=== PATIENT | female | born 1970 ===

== ENCOUNTER 2017-12-30 12:46 | Inpatient (IN) | payer OTHER ==
[2017-12-30] MEDS ORDERED: Sodium Chloride 0.9% 1,000 ML IV ONE (13:21)
[2017-12-30] MEDS ORDERED: Sodium Chloride 0.9% 1,000 ML ONE ×2 (13:27→16:41)
[2017-12-30 13:41] LABS: BASO % 0.1 % (0.0-2.0); LYMPH # 0.7 K/uL (1.0-4.3); LYMPH % 7.6 % (20.0-40.0); MEAN CORPUSCULAR HEMOGLOBIN 15.3 pg (27.0-31.0); MEAN CORPUSCULAR HGB CONC 28.9 g/dL (33.0-37.0); MEAN PLATELET VOLUME 8.5 fL (7.2-11.7); MONO # 0.8 K/uL (0.0-0.8); NEUT # 8.1 K/uL (1.8-7.0); NEUT % 84.3 % (50.0-75.0); NRBC % 0.1 % (0.0-2.0); PLATELET COUNT 245 K/uL (130-400); RBC 4.22 Mil/uL (3.80-5.20); WHITE BLOOD COUNT 9.6 K/uL (4.8-10.8)
[2017-12-30 13:46] LABS: HEMOGLOBIN 6.5 g/dL (11.0-16.0)
[2017-12-30 13:47] LABS: ALB/GLOB RATIO 1.4 (1.0-2.1); ALBUMIN 4.3 g/dL (3.5-5.0); ALT/SGPT 30 U/L (9-52); AST/SGOT 22 U/L (14-36); BLOOD UREA NITROGEN 14 mg/dL (7-17); CALCIUM 9.3 mg/dl (8.6-10.4); GFR AFRICAN-AMERICAN > 60; GFR NON-AFRICAN AMERICAN > 60; LIPASE 43 U/L (23-300)
[2017-12-30 14:18] LABS: ANISOCYTOSIS MODERATE; LYMPHOCYTE 4 % (20-40); MONOCYTE 6 % (0-10); NEUTROPHIL 90 % (50-75); PLATELET ESTIMATE NORMAL (NORMAL); TOTAL CELLS COUNTED 100
[2017-12-30 14:19] LABS: HYPOCHROMIC MARKED; MICROCYTOSIS MARKED; OVALOCYTES SLIGHT; POLYCHROMIC SLIGHT
[2017-12-30 14:33] LABS: INR 1.3; PROTHROMBIN TIME 14.7 SECONDS (9.7-12.2)
--- NOTE | 2017-12-30 14:44 | C.PDOC ---
History Of Present Illness 47 y/o female who presents to the ED with complaints of nausea, vomiting, diarrhea, fever, chills since Saturday12/27/2018. Patient reports she just returned from [place] yesterday, admits she drank water there by mistake. Patient also reports family members had similar symptoms. Patient denies chest pain, shortness of breath, dysuria, bloody diarrhea. No other physical complaints at this time. Time Seen by Provider: 12/30/17 13:10 Chief Complaint (Nursing): GI Problem History Per: Patient History/Exam Limitations: no limitations Onset/Duration Of Symptoms: Days (Saturday12/27/2017) Current Symptoms Are (Timing): Still Present Context: Other (drank water in [place]) Severity: Moderate Location Of Pain/Discomfort: Diffuse Associated Symptoms: Fever, Chills, Nausea, Vomiting, Diarrhea. denies: Chest Pain, Urinary Symptoms Recent travel outside of the [place]: No Past Medical History Reviewed: Historical Data, Nursing Documentation, Vital Signs Vital Signs: Last Vital Signs Temp 98.4 F 01/01/18 08:15 Pulse 77 01/01/18 08:15 Resp 20 01/01/18 08:15 BP 152/83 H 01/01/18 08:15 Pulse Ox 97 01/01/18 08:15 - Medical History PMH: No Chronic Diseases Surgical History: No Surg Hx Family History: States: No Known Family Hx - Social History Hx Tobacco Use: No Hx Alcohol Use: Yes Hx Substance Use: No Review Of Systems Constitutional: Positive for: Fever, Chills Cardiovascular: Negative for: Chest Pain, Palpitations Respiratory: Negative for: Cough, Shortness of Breath Gastrointestinal: Positive for: Nausea, Vomiting, Abdominal Pain, Diarrhea. Negative for: Melena, Hematochezia Genitourinary: Negative for: Dysuria, Hematuria Skin: Negative for: Rash Physical Exam - Physical Exam Appears: Non-toxic, Other (mildly uncomfortable) Skin: Normal Color, Warm, Dry, No Rash Head: Normacephalic Oral Mucosa: Moist Cardiovascular: Rhythm Regular Respiratory: Normal Breath Sounds, No Rales, No Rhonchi, No Wheezing Gastrointestinal/Abdominal: Bowel Sounds, Soft, Tenderness (mild diffuse tenderness to palpation ), No Guarding, No Rebound, Other ((-) McBurney's, (-) Davila's) Rectal: Normal Exam, Rectal Tone (normal), No Heme Positive, Heme Negative, No Maroon Stool, No Melena, No Blood Streaked Stool, No Hemorrhoids, No Mass, No Tenderness Back: No CVA Tenderness Neurological/Psych: Oriented x3 Gait: Steady ED Course And Treatment - Laboratory Results Result Diagrams: 01/01/18 06:09 01/01/18 06:09 ECG: Interpreted By Me, Viewed By Me (NSR 89 bpm, normal axis, QTc 498ms, no acute ST changes) ECG Interpretation: Abnormal O2 Sat by Pulse Oximetry: 99 (RA) Pulse Ox Interpretation: Normal Progress Note: Blood work, UA, Upreg ordered and reviewed. Patient given IV NS bolus, IV Zofran, PO Bentyl. Hgb is 6.5. Patient questioned further, admits to heavy menses that last 7 days typically, and admits she was feeling generalized weakness and lightheaded prior to her [place] trip. 2 years ago was told she was anemic and started on PO Iron, but did not take any more after supply finished. IV PRBC transfusion ordered x 2 units. - Physician Consult Information Physician Contacted: Greg Latham Outcome Of Conversation: Discussed patient with hospitalist, agrees with admission for severe anemia needing blood transfusion, travelers diarrhea. Disposition - Disposition Disposition: HOSPITALIZED Disposition Time: 15:01 Condition: STABLE - Clinical Impression Clinical Impression: Severe anemia, Travelers' diarrhea, Fever - Scribe Statement The provider has reviewed the documentation as recorded by the Scribe Sindhu Elam All medical record entries made by the Scribe were at my direction and personally dictated by me. I have reviewed the chart and agree that the record accurately reflects my personal performance of the history, physical exam, medical decision making, and the department course for this patient. I have also personally directed, reviewed, and agree with the discharge instructions and disposition. Decision To Admit - Pt Status Changed To: Hospital Disposition Of: Observation - . Bed Request Type: Regular Admitting Physician: Greg Latham Patient Diagnosis: Severe anemia, Travelers' diarrhea, Fever
[2017-12-30 14:45] LABS: HCG,QUALITATIVE URINE NEGATIVE (NEGATIVE)
[2017-12-30 14:49] LABS: SQUAMOUS EPITHIAL 26 /hpf (0-5); URINE BACTERIA OCC (<OCC); URINE BILIRUBIN NEGATIVE (NEGATIVE); URINE BLOOD NEGATIVE (NEGATIVE); URINE CLARITY Hazy (Clear); URINE COLOR Amber (YELLOW); URINE GLUCOSE (UA) NORMAL (Normal); URINE LEUKOCYTE ESTERASE 2+ Leu/uL (Negative); URINE PROTEIN 2+ mg/dL (NEGATIVE)
[2017-12-30] MEDS ORDERED: Ciprofloxacin 400mg/200ml D5W 0 MG/0 ML BAG IVPB ONE (15:42)
--- NOTE | 2017-12-30 16:07 | CP.PCM.HP ---
History of Present Illness - History of Present Illness History of Present Illness: Patient is a 47 year old female with PMHx iron-deficiency anemia and menorrhagia who presents to the ER with complaint of nausea, vomiting, diarrhea fever, and chills since 12/27/17. Patient states she was in [place] from 12/24/17 to 12/29/17 with her friends. She states on 12/27/17, she and her friends went out to a restaurant where they shared a pasta dish with clams, mussels, and shrimp. She states they asked for bottled water but were given a pitcher instead. She states she and her friends had symptoms start Saturday evening following this shared meal. Patient reports her friends are all currently hospitalized in other hospitals in the area with the same complaints. Patient denies blood in vomit or diarrhea. She reports decreased PO intake, only crackers, bread, minimal water. She reports Tmax 103 this morning at 4AM, at which time she took ibuprofen, with no relief of rigors. She reports light- headed feeling that is chronic, but worsened recently. She reports heavy menses with clots and was on oral iron supplementation in the past, but has not taken iron in a few years. PMD: Dg Mueller Allergies: none PMHx: anemia (likely iron-deficiency- on iron in past- denies sickle cell or thalassemia), uterine fibroids LMP: 12/15-12/20 requiring pad change every hour, + clots PSHx: uterine fibroid removal in [address] 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 absent: Chest Pain, Dyspnea, Leg Edema, Leg Ulcers - Respiratory Respiratory: absent: Cough, Dyspnea - Gastrointestinal Gastrointestinal: Diarrhea, Loose Stools, Nausea, Vomiting. absent: Coffee Ground Emesis, Hematemesis, Hematochezia - Genitourinary Genitourinary: absent: Dysuria - Musculoskeletal Musculoskeletal: absent: Back Pain - Integumentary Integumentary: absent: Rash, Sores, Unusual Bruising - Neurological Neurological: absent: Confusion, Focal Weakness, Vertigo, Weakness - Endocrine Endocrine: absent: Palpitations Past Patient History - Past Social History Smoking Status: Never Smoked - PSYCHIATRIC Hx Substance Use: No - SURGICAL HISTORY Hx Surgeries: No Meds Allergies/Adverse Reactions: Allergies Allergy/AdvReac Type Severity Reaction Status Date / Time No Known Allergies Allergy Verified 12/30/17 12:52 Physical Exam - Constitutional Appears: No Acute Distress - Head Exam Head Exam: ATRAUMATIC, NORMOCEPHALIC - Eye Exam Eye Exam: EOMI, PERRL. absent: Scleral icterus Additional comments: conjunctival pallor patient wearing colored contact lenses - ENT Exam ENT Exam: Mucous Membranes Dry - Neck Exam Neck exam: Negative for: Lymphadenopathy - Respiratory Exam Respiratory Exam: Clear to Auscultation Bilateral, NORMAL BREATHING PATTERN. absent: Rales, Rhonchi, Wheezes - Cardiovascular Exam Cardiovascular Exam: Tachycardia, +S1, +S2, Systolic Murmur - GI/Abdominal Exam GI & Abdominal Exam: Normal Bowel Sounds, Soft, Tenderness (diffuse). absent: Distended, Firm, Guarding - Extremities Exam Extremities exam: Positive for: normal inspection. Negative for: calf tenderness, pedal edema - Neurological Exam Neurological exam: Alert, Oriented x3 - Psychiatric Exam Psychiatric exam: Normal Affect - Skin Skin Exam: Pallor, Warm Additional comments: no petechiae Results - Vital Signs Recent Vital Signs: Last Vital Signs Temp 102.2 F H 12/30/17 15:46 Pulse 94 H 12/30/17 15:46 Resp 18 12/30/17 15:46 BP 144/51 L 12/30/17 15:46 Pulse Ox 96 12/30/17 15:46 - Labs Result Diagrams: 12/30/17 13:29 12/30/17 13:29 Labs: Laboratory Results - last 24 hr 12/30/17 12/30/17 12/30/17 13:29 13:29 14:09 WBC 9.6 RBC 4.22 Hgb 6.5 L* Hct 22.3 L MCV 53.0 L MCH 15.3 L MCHC 28.9 L RDW 22.0 H Plt Count 245 MPV 8.5 Neut % (Auto) 84.3 H Lymph % (Auto) 7.6 L Maury % (Auto) 8.0 Eos % (Auto) 0.0 Baso % (Auto) 0.1 Neut # (Auto) 8.1 H Lymph # (Auto) 0.7 L Maury # (Auto) 0.8 Eos # (Auto) 0.0 Baso # (Auto) 0.0 Neutrophils % (Manual) 90 H Lymphocytes % (Manual) 4 L Monocytes % (Manual) 6 Platelet Estimate Normal Polychromasia Slight Hypochromasia (manual) Marked Anisocytosis (manual) Moderate Microcytosis (manual) Marked Ovalocytes Slight PT INR APTT Sodium 137 Potassium 3.5 L Chloride 100 Carbon Dioxide 23 Anion Gap 17 BUN 14 Creatinine 0.7 Est GFR ( Amer) > 60 Est GFR (Non-Af Amer) > 60 Random Glucose 104 Calcium 9.3 Total Bilirubin 1.1 AST 22 ALT 30 Alkaline Phosphatase 67 Total Protein 7.4 Albumin 4.3 Globulin 3.1 Albumin/Globulin Ratio 1.4 Lipase 43 Urine Color Urine Clarity Urine pH Ur Specific Gregory Urine Protein Urine Glucose (UA) Urine Ketones Urine Blood Urine Nitrate Urine Bilirubin Urine Urobilinogen Ur Leukocyte Esterase Urine WBC (Auto) Urine RBC (Auto) Ur Squamous Epith Cells Urine Bacteria Urine HCG, Qual Stool Occult Blood Blood Type O POSITIVE Antibody Screen Negative 12/30/17 12/30/17 12/30/17 14:09 14:37 14:37 WBC RBC Hgb Hct MCV MCH MCHC RDW Plt Count MPV Neut % (Auto) Lymph % (Auto) Maury % (Auto) Eos % (Auto) Baso % (Auto) Neut # (Auto) Lymph # (Auto) Maury # (Auto) Eos # (Auto) Baso # (Auto) Neutrophils % (Manual) Lymphocytes % (Manual) Monocytes % (Manual) Platelet Estimate Polychromasia Hypochromasia (manual) Anisocytosis (manual) Microcytosis (manual) Ovalocytes PT 14.7 H INR 1.3 APTT 28 Sodium Potassium Chloride Carbon Dioxide Anion Gap BUN Creatinine Est GFR ( Amer) Est GFR (Non-Af Amer) Random Glucose Calcium Total Bilirubin AST ALT Alkaline Phosphatase Total Protein Albumin Globulin Albumin/Globulin Ratio Lipase Urine Color Bozena Urine Clarity Hazy Urine pH 5.0 Ur Specific Gregory 1.018 Urine Protein 2+ H Urine Glucose (UA) Normal Urine Ketones Negative Urine Blood Negative Urine Nitrate Positive H Urine Bilirubin Negative Urine Urobilinogen 2.0 H Ur Leukocyte Esterase 2+ H Urine WBC (Auto) 42 H Urine RBC (Auto) 3 Ur Squamous Epith Cells 26 H Urine Bacteria Occ H Urine HCG, Qual Negative Stool Occult Blood Negative Blood Type Antibody Screen Assessment & Plan - Assessment and Plan (Free Text) Assessment: Symptomatic Anemia hemoglobin 6.5, no prior studies for comparison patient reports taking iron supplements in past, denies recent follow up will check iron studies: ferritin, TIBC, transferrin check B12, folate, retic count consider hemoglobin electrophoresis pending results iron studies stool occult blood negative likely due to menorrhagia/uterine fibroids as patient has prior surgical removal of fibroids patient to be transfused 2 units PRBC will check EKG Diarrheal Illness likely food-borne due to patient's history of symptoms starting after consuming shellfish and water in [place] will check stool culture, ova & parasite, giardia, fecal leukocytes check blood and urine culture as well- UA contaminated with 26 squamous epithelial cells, 42 WBC starting cipro 400mg IV q12h, flagyl 500mg q8h to cover for possibly ameba infection from contaminated water NS @ 150cc/h bland diet Fever likely due to diarrheal illness will check blood culture, stool culture as outlined above check urine culture tylenol 650mg PO prn fever Prophylactic measure SCDs Plan of care discussed with attending physician
[2017-12-30] MEDS ORDERED: Potassium Chloride 20 mEq ER Tab PO ONE ×2 (16:30→16:42)
[2017-12-30] MEDS: Sodium Chloride 0.9% 1,000 ML IV SCH ×2 (16:43→23:26)
[2017-12-30 16:49] LABS: IRON < 10 ug/dL (37-170); TOTAL IRON BINDING CAPACITY 408 ug/dL (250-450)
[2017-12-30 16:53] LABS: FERRITIN 20.4 ng/mL
[2017-12-30 17:24] LABS: FOLATE > 20.0 ng/mL
[2017-12-30] MEDS: metroNIDAZOLE IV 500 mg/100 ml 500 MG/100 ML BAG IVPB SCH (18:11)
[2017-12-31] MEDS: metroNIDAZOLE IV 500 mg/100 ml 500 MG/100 ML BAG IVPB SCH ×3 (00:11→17:18)
[2017-12-31 01:35] VITALS: RESP 20
[2017-12-31] MEDS: Ciprofloxacin 400mg/200ml D5W 400 MG/200 ML BAG IVPB SCH ×2 (03:04→14:34)
[2017-12-31 06:52] LABS: BASO % 0.2 % (0.0-2.0); LYMPH % 13.6 % (20.0-40.0); MEAN CELL VOLUME 52.9 fL (81.0-99.0); MEAN CORPUSCULAR HGB CONC 28.3 g/dL (33.0-37.0); MONO # 0.6 K/uL (0.0-0.8); MONO % 8.7 % (0.0-10.0); NEUT # 5.6 K/uL (1.8-7.0); NEUT % 77.5 % (50.0-75.0); RBC 3.71 Mil/uL (3.80-5.20); WHITE BLOOD COUNT 7.2 K/uL (4.8-10.8)
[2017-12-31 07:16] LABS: HEMOGLOBIN 5.6 g/dL (11.0-16.0)
[2017-12-31 07:49] LABS: ALB/GLOB RATIO 1.1 (1.0-2.1); ALBUMIN 3.3 g/dL (3.5-5.0); ALT/SGPT 27 U/L (9-52); AST/SGOT 21 U/L (14-36); BLOOD UREA NITROGEN 8 mg/dL (7-17); CALCIUM 8.5 mg/dl (8.6-10.4); GFR AFRICAN-AMERICAN > 60; GFR NON-AFRICAN AMERICAN > 60
[2017-12-31] MEDS ORDERED: Potassium Chloride 20 mEq ER Tab PO ONE (09:48)
[2017-12-31] MEDS: Sodium Chloride 0.9% 1,000 ML IV SCH ×2 (12:52→19:24)
--- NOTE | 2017-12-31 17:12 | CP.PCM.PN ---
<Ashwin Jung - Last Filed: 12/31/17 17:09> Subjective - Date & Time of Evaluation Date of Evaluation: 12/31/17 Time of Evaluation: 07:25 - Subjective Subjective: Medicine progress note ( Dr. Marquez's service) Patient was seen and examined at bedside, while receiving her first unit of PRBC. Patient reports that her symptoms have improved but still admits to fatigue. Patient denies fever, chills, abdominal pain, diarrhea, nausea and vomiting. Objective - Vital Signs/Intake and Output Vital Signs (last 24 hours): Temp Pulse Resp BP Pulse Ox 102.6 F H 93 H 20 168/76 H 96 12/31/17 16:54 12/31/17 16:54 12/31/17 16:54 12/31/17 16:54 12/31/17 16:54 Intake and Output: 12/31/17 12/31/17 06:59 18:59 Intake Total 1500 2350 Output Total 200 Balance 1300 2350 - Medications Medications: Current Medications Acetaminophen (Tylenol 325mg Tab) 650 mg PO Q6 PRN PRN Reason: Fever >100.4 F Last Admin: 12/31/17 16:20 Dose: 650 mg Sodium Chloride (Sodium Chloride 0.9%) 1,000 mls @ 150 mls/hr IV .Q6H40M ZACHERY Last Admin: 12/31/17 12:52 Dose: Not Given Ciprofloxacin (Cipro 400mg/200ml Dsw) 400 mg in 200 mls @ 133 mls/hr IVPB Q12H ZACHERY PRN Reason: Protocol Last Admin: 12/31/17 14:34 Dose: 133 mls/hr Metronidazole (Flagyl) 500 mg in 100 mls @ 100 mls/hr IVPB Q8H ZACHERY PRN Reason: Protocol Last Admin: 12/31/17 08:51 Dose: Not Given Ondansetron HCl (Zofran Inj) 4 mg IVP Q6 PRN PRN Reason: Nausea/Vomiting - Labs Labs: 12/31/17 06:22 12/31/17 06:22 PT 14.7 SECONDS (9.7-12.2) H 12/30/17 14:09 INR 1.3 12/30/17 14:09 APTT 28 SECONDS (21-34) 12/30/17 14:09 - Constitutional Appears: No Acute Distress - Head Exam Head Exam: ATRAUMATIC - Eye Exam Eye Exam: EOMI - ENT Exam ENT Exam: Mucous Membranes Moist - Respiratory Exam Respiratory Exam: Clear to Ausculation Bilateral, NORMAL BREATHING PATTERN. absent: Prolonged Expiratory Phase, Rales, Rhonchi, Wheezes, Respiratory Distress - Cardiovascular Exam Cardiovascular Exam: Tachycardia, REGULAR RHYTHM, +S1, +S2 - GI/Abdominal Exam GI & Abdominal Exam: Soft, Normal Bowel Sounds. absent: Bruit, Distended, Firm , Guarding, Rigid, Tenderness - Extremities Exam Extremities Exam: Normal Inspection. absent: Calf Tenderness, Full ROM, Joint Swelling, Pedal Edema, Tenderness - Neurological Exam Neurological Exam: Alert, Awake, Oriented x3 - Psychiatric Exam Psychiatric exam: Normal Affect - Skin Skin Exam: Pallor Assessment and Plan (1) Symptomatic anemia Assessment & Plan: 2/2 menorrhagia On admission: * H/H: 6.5/22.3---> 5.6/19.6 Iron: <10 Ferritin: 20.4 B12/; 362 Folate: >20.0 TIBC: 408 Transferrin: 274.68 Recticulocyte: 2.3 Stool Occult: Negative Management: * Transfuse 2 units PRBC * F/u repeat CBC post transfusion * Plans for iron supplement upon discharge Status: Acute (2) Fever Assessment & Plan: Tmax: 103 Blood Culture: Negative x24 hours, f/u repeat BC UA: Positive nitrate, 2+ LE, F/u urine culture F/u procalcitonin Cipro 400mg IV Q12H Flagyl 500mg IV Q8H Tylenol 650mg PO Q6H PRN for fever> 100.4 NS @ 100mls/hr Status: Acute (3) History of menorrhagia Assessment & Plan: As per patient, has had Myomyectomy 2x Patient refuses inpatient transvaginal US and wants to do outpatient work-up Status: Acute (4) Travelers' diarrhea Assessment & Plan: likely food-borne due to patient's history of symptoms starting after consuming shellfish and water in [place] F/u stool culture, ova & parasite, giardia, fecal leukocytes Management: * NS @ 150cc/h * [place] diet Status: Acute (5) Prophylactic measure Assessment & Plan: DVT: SCDs GI: Not indicated Zofran 4mg IV Q6h PRN All plans and management discussed with Dr. Marquez Status: Acute <JimmyLyn V - Last Filed: 12/31/17 17:41> Objective - Vital Signs/Intake and Output Vital Signs (last 24 hours): Temp Pulse Resp BP Pulse Ox 102.6 F H 93 H 20 168/76 H 96 12/31/17 16:54 12/31/17 16:54 12/31/17 16:54 12/31/17 16:54 12/31/17 16:54 Intake and Output: 12/31/17 12/31/17 06:59 18:59 Intake Total 1500 2350 Output Total 200 Balance 1300 2350 - Medications Medications: Current Medications Acetaminophen (Tylenol 325mg Tab) 650 mg PO Q6 PRN PRN Reason: Fever >100.4 F Last Admin: 12/31/17 16:20 Dose: 650 mg Sodium Chloride (Sodium Chloride 0.9%) 1,000 mls @ 150 mls/hr IV .Q6H40M ZACHERY Last Admin: 12/31/17 12:52 Dose: Not Given Ciprofloxacin (Cipro 400mg/200ml Dsw) 400 mg in 200 mls @ 133 mls/hr IVPB Q12H ZACHERY PRN Reason: Protocol Last Admin: 12/31/17 14:34 Dose: 133 mls/hr Metronidazole (Flagyl) 500 mg in 100 mls @ 100 mls/hr IVPB Q8H ZACHERY PRN Reason: Protocol Last Admin: 12/31/17 17:18 Dose: 100 mls/hr Ondansetron HCl (Zofran Inj) 4 mg IVP Q6 PRN PRN Reason: Nausea/Vomiting - Labs Labs: 12/31/17 06:22 12/31/17 06:22 PT 14.7 SECONDS (9.7-12.2) H 12/30/17 14:09 INR 1.3 12/30/17 14:09 APTT 28 SECONDS (21-34) 12/30/17 14:09 Attending/Attestation - Attestation I have personally seen and examined this patient.: Yes I have fully participated in the care of the patient.: Yes I have reviewed all pertinent clinical information, including history, physical exam and plan: Yes Notes (Text): Patient seen, examined, case discussed with er medical technician. Patient blood transfusion was held overnight given fever. Patient's mornings is without fever even drop of hemoglobin from 6.5-5.6. Patient reported when she was in [place] with her friends she did drink the water, ice and eat food from [place]. She does report all her friends from her trip are in hospitals respectively similar complaints but diarrhea. We will transfuse 2 units today given the drop in hemoglobin. It is suspected that anemia is due to known history of fibroids. We did order for a pelvic and transvaginal ultrasound however patient chooses not to do it and would like to do it as an outpatient. We are awaiting culture workup. Patient has not had a bowel movement since yesterday. We will see if patient is having appropriate bowel movements or not. Patient this afternoon started spiking fevers 102.6F. we will get stat dose of feet of Tylenol and Benadryl. Blood cultures are negative 2. We will also order CT chest abdomen and pelvis without contrast to rule out any other etiology relation to the fever in light of diarrhea. Assessment and Plan (1) Symptomatic anemia Assessment & Plan: * 2/2 menorrhagia On admission: * H/H: 6.5/22.3---> 5.6/19.6 Iron: <10 Ferritin: 20.4 B12/; 362 Folate: >20.0 TIBC: 408 Transferrin: 274.68 Recticulocyte: 2.3 Stool Occult: Negative Management: * Transfuse 2 units PRBC * F/u repeat CBC post transfusion * Plans for iron supplement upon discharge Status: Acute (2) Fever Assessment & Plan: Tmax: 103 Tmax: 102.6F * Blood Culture: Negative x24 hours, f/u repeat BC * UA: Positive nitrate, 2+ LE, F/u urine culture * F/u procalcitonin Cipro 400mg IV Q12H Flagyl 500mg IV Q8H Tylenol 650mg PO Q6H PRN for fever> 100.4 NS @ 100mls/hr Status: Acute (3) History of menorrhagia Assessment & Plan: As per patient, has had Myomyectomy 2x Patient refuses inpatient transvaginal US and wants to do outpatient work-up Status: Acute (4) Travelers' diarrhea Assessment & Plan: * likely food-borne due to patient's history of symptoms starting after consuming shellfish and water in [place] * F/u stool culture, ova & parasite, giardia, fecal leukocytes Management: * NS @ 150cc/h * [place] diet Status: Acute (5) Prophylactic measure Assessment & Plan: * DVT: SCDs * GI: Not indicated * Zofran 4mg IV Q6h PRN
[2017-12-31 17:26] LABS: BASO % 0.1 % (0.0-2.0); LYMPH # 0.7 K/uL (1.0-4.3); LYMPH % 7.4 % (20.0-40.0); MEAN CORPUSCULAR HEMOGLOBIN 18.2 pg (27.0-31.0); MEAN CORPUSCULAR HGB CONC 30.4 g/dL (33.0-37.0); MEAN PLATELET VOLUME 8.7 fL (7.2-11.7); MONO # 0.6 K/uL (0.0-0.8); NEUT # 8.5 K/uL (1.8-7.0); NEUT % 86.5 % (50.0-75.0); PLATELET COUNT 192 K/uL (130-400); RBC 4.48 Mil/uL (3.80-5.20); RED CELL DISTRIBUTION WIDTH 31.8 % (11.5-14.5); WHITE BLOOD COUNT 9.9 K/uL (4.8-10.8)
[2017-12-31 17:38] LABS: HEMOGLOBIN 8.2 g/dL (11.0-16.0); MEAN CELL VOLUME 59.8 fL (81.0-99.0)
[2017-12-31] MEDS ORDERED: DiphenhydrAMINE 50 mg/ml Inj IVP ONE (17:45)
[2017-12-31 18:12] LABS: LYMPHOCYTE 3 % (20-40); MONOCYTE 1 % (0-10); NEUTROPHIL 96 % (50-75); TOTAL CELLS COUNTED 100
[2017-12-31 18:13] LABS: PLATELET ESTIMATE NORMAL (NORMAL)
[2017-12-31 18:14] LABS: ANISOCYTOSIS MODERATE
[2017-12-31 18:15] LABS: HYPOCHROMIC MODERATE; MICROCYTOSIS MODERATE; POLYCHROMIC SLIGHT
[2017-12-31 18:16] LABS: OVALOCYTES SLIGHT
--- NOTE | 2017-12-31 19:35 | CARD ---
APPROVED REPORT EKG Measurement Heart [id number] <Conclusion> Normal sinus rhythm Prolonged QT Abnormal ECG
[2018-01-01] MEDS: metroNIDAZOLE IV 500 mg/100 ml 500 MG/100 ML BAG IVPB SCH ×3 (00:14→18:54)
[2018-01-01] MEDS: Sodium Chloride 0.9% 1,000 ML IV SCH ×3 (01:37→08:28)
[2018-01-01] MEDS: Ciprofloxacin 400mg/200ml D5W 400 MG/200 ML BAG IVPB SCH ×2 (02:42→16:35)
[2018-01-01 06:19] LABS: BASO % 0.3 % (0.0-2.0); EOS % 0.1 % (0.0-4.0); LYMPH # 1.3 K/uL (1.0-4.3); LYMPH % 14.1 % (20.0-40.0); MEAN CELL VOLUME 59.3 fL (81.0-99.0); MEAN CORPUSCULAR HEMOGLOBIN 18.1 pg (27.0-31.0); MEAN CORPUSCULAR HGB CONC 30.6 g/dL (33.0-37.0); MEAN PLATELET VOLUME 8.6 fL (7.2-11.7); MONO # 0.7 K/uL (0.0-0.8); MONO % 8.2 % (0.0-10.0); NEUT # 7.1 K/uL (1.8-7.0); NEUT % 77.3 % (50.0-75.0); RBC 4.4 Mil/uL (3.80-5.20); RED CELL DISTRIBUTION WIDTH 30.9 % (11.5-14.5); WHITE BLOOD COUNT 9.1 K/uL (4.8-10.8)
[2018-01-01 06:34] LABS: ALB/GLOB RATIO 1.2 (1.0-2.1); ALBUMIN 3.6 g/dL (3.5-5.0); ALT/SGPT 29 U/L (9-52); AST/SGOT 44 U/L (14-36); BLOOD UREA NITROGEN 9 mg/dL (7-17); CALCIUM 8.8 mg/dl (8.6-10.4); GFR AFRICAN-AMERICAN > 60; GFR NON-AFRICAN AMERICAN > 60
[2018-01-01] MEDS ORDERED: Potassium Chloride 20 mEq ER Tab PO ONE (09:52)
[2018-01-01] MEDS: Saccharomyces Boulardi 250 mg Cap PO SCH ×2 (10:15→18:54)
[2018-01-01] MEDS: Sodium Chloride 0.45% 1,000 ML IV SCH ×2 (10:16→19:31)
[2018-01-01 11:20] LABS: SQUAMOUS EPITHIAL 3 /hpf (0-5); URINE BILIRUBIN NEGATIVE (NEGATIVE); URINE BLOOD NEGATIVE (NEGATIVE); URINE CLARITY Hazy (Clear); URINE COLOR Yellow (YELLOW); URINE GLUCOSE (UA) NORMAL (Normal); URINE LEUKOCYTE ESTERASE TRACE Leu/uL (Negative); URINE PROTEIN NEGATIVE (NEGATIVE); URINE UROBILINOGEN NORMAL mg/dL (0.2-1.0)
--- NOTE | 2018-01-01 12:01 | CT ---
PROCEDURE: CT Chest, Abdomen and Pelvis without intravenous contrast HISTORY: Fever COMPARISON: None. TECHNIQUE: CT scan of the chest, abdomen and pelvis was performed without administration of intravenous contrast. Oral contrast was not administered. Coronal and sagittal reformatted images were obtained. Radiation dose: Total exam DLP = 1279.35 mGy-cm. This CT exam was performed using one or more of the following dose reduction techniques: Automated exposure control, adjustment of the mA and/or kV according to patient size, and/or use of iterative reconstruction technique. FINDINGS: CT CHEST WITHOUT CONTRAST: LUNGS: The lungs are well inflated. There is subsegmental level in the left lower lobe no pulmonary nodule, mass or consolidation. MEDIASTINUM: Normal caliber aorta and pulmonary arterial trunk. Heart is normal in size. No pericardial effusion pain LYMPH NODES: No pathologic mediastinal adenopathy. PLEURA: No pneumothorax. No pleural effusion. BONES: Unremarkable. OTHER FINDINGS: None. CT ABDOMEN AND PELVIS: LIVER: Normal in size. No gross lesion or ductal dilatation. GALLBLADDER AND BILE DUCTS: No calcified gallstones. PANCREAS: Normal in size. No gross lesion or ductal dilatation. SPLEEN: There is mild splenomegaly. ADRENALS: No discrete nodule. KIDNEYS AND URETERS: Normal in size. No there is mild fullness in the right renal collecting system and mild diffuse dilatation of the right ureteral with a 5 mm stone at the right UV junction. VASCULATURE: No aortic aneurysm. BOWEL: The small bowel loops are normal in caliber. The colon is unremarkable. No bowel dilatation or obstruction. APPENDIX: Normal appendix. PERITONEUM: No free fluid. No free air. LYMPH NODES: No enlarged lymph nodes. BLADDER: Partially decompressed. REPRODUCTIVE: There is an enlarged lobular fibroid uterus. BONES: No acute fracture. Within normal limits for the patient's age. OTHER FINDINGS: There is a small sliding hiatal hernia. IMPRESSION: 1. 5 mm stone at the right UV in junction, mild fullness in the right renal collecting system and mild dilatation of the right ureter. 2. Mild splenomegaly. 3. Enlarged lobular fibroid uterus. Please correlate with pelvic ultrasound examination. A preliminary report was provided by [employer].
--- NOTE | 2018-01-01 13:16 | CP.PCM.PN ---
<ErichTiffjesse E - Last Filed: 01/01/18 13:36> Subjective - Date & Time of Evaluation Date of Evaluation: 01/01/18 Time of Evaluation: 07:40 - Subjective Subjective: Medicine progress note ( Dr. Marquez's service) Patient was seen and examined at bedside, Patient reports that her symptoms have improved but still admits to fatigue. Patient denies fever, chills, abdominal pain, diarrhea, nausea, vomiting, dysuria or any acute issues. Objective - Vital Signs/Intake and Output Vital Signs (last 24 hours): Temp Pulse Resp BP Pulse Ox 98.4 F 77 20 152/83 H 99 01/01/18 08:15 01/01/18 08:15 01/01/18 08:15 01/01/18 08:15 01/01/18 09:34 Intake and Output: 01/01/18 01/01/18 06:59 18:59 Intake Total 1500 1365 Balance 1500 1365 - Medications Medications: Current Medications Acetaminophen (Tylenol 325mg Tab) 650 mg PO Q6 PRN PRN Reason: Fever >100.4 F Last Admin: 01/01/18 05:44 Dose: 650 mg Ciprofloxacin (Cipro 400mg/200ml Dsw) 400 mg in 200 mls @ 133 mls/hr IVPB Q12H [facility] PRN Reason: Protocol Last Admin: 01/01/18 02:42 Dose: 133 mls/hr Metronidazole (Flagyl) 500 mg in 100 mls @ 100 mls/hr IVPB Q8H [facility] PRN Reason: Protocol Last Admin: 01/01/18 09:34 Dose: 100 mls/hr Sodium Chloride (Sodium Chloride 0.45%) 1,000 mls @ 100 mls/hr IV .Q10H [facility] Last Admin: 01/01/18 10:16 Dose: 100 mls/hr Ondansetron HCl (Zofran Inj) 4 mg IVP Q6 PRN PRN Reason: Nausea/Vomiting Saccharomyces Boulardii (Florastor) 250 mg PO BID [facility] Last Admin: 01/01/18 10:15 Dose: 250 mg - Labs Labs: 01/01/18 06:09 01/01/18 06:09 PT 14.7 SECONDS (9.7-12.2) H 12/30/17 14:09 INR 1.3 12/30/17 14:09 APTT 28 SECONDS (21-34) 12/30/17 14:09 - Constitutional Appears: Well, No Acute Distress - Head Exam Head Exam: ATRAUMATIC, NORMAL INSPECTION - Eye Exam Eye Exam: EOMI, Normal appearance - ENT Exam ENT Exam: Mucous Membranes Moist - Respiratory Exam Respiratory Exam: Clear to Ausculation Bilateral, NORMAL BREATHING PATTERN. absent: Accessory Muscle Use, Chest Wall Tenderness, Decreased Breath Sounds, Wheezes - Cardiovascular Exam Cardiovascular Exam: REGULAR RHYTHM, +S1, +S2. absent: Murmur - GI/Abdominal Exam GI & Abdominal Exam: Soft, Normal Bowel Sounds. absent: Distended, Firm, Guarding, Rigid, Tenderness - Extremities Exam Extremities Exam: Normal Inspection. absent: Calf Tenderness, Pedal Edema - Back Exam Back Exam: NORMAL INSPECTION. absent: CVA tenderness (L), CVA tenderness (R) - Neurological Exam Neurological Exam: Alert, Awake, Oriented x3 - Psychiatric Exam Psychiatric exam: Normal Affect, Normal Mood - Skin Skin Exam: Normal Color Assessment and Plan (1) Symptomatic anemia Assessment & Plan: Possibly 2/2 menorrhagia On admission: * H/H: 6.5/22.3---> 5.6/19.6 Iron: <10 Ferritin: 20.4 B12/; 362 Folate: >20.0 TIBC: 408 Transferrin: 274.68 Recticulocyte: 2.3 Stool Occult: Negative Management: * Transfuse 2 units PRBC * H/H post-transfusion of 2 units of PRBC: 8.2/26.8 * Plans for iron supplement upon discharge Status: Acute (2) Fever Assessment & Plan: Tmax: 103 Blood Culture: Negative x24 hours, f/u repeat BC UA: Positive nitrate, 2+ LE, Urine culture: E.Coli, sensitive to Cipro; LIANET: 0.25 F/u repeat UA and UC Procalcitonin: 0.13 Cipro 400mg IV Q12H (Started 12/31/17) Flagyl 500mg IV Q8H (Started 12/31/17) Tylenol 650mg PO Q6H PRN for fever> 100.4 1/2 NS @ 100mls/hr Imaging: CT Chest, Abdomen and Pelvis without intravenous contrast (01/01/18): 5 mm stone at the right UV in junction, mild fullness in the right renal collecting system and mild dilatation of the right ureter. Mild splenomegaly. Enlarged lobular fibroid uterus. Please correlate with pelvic ultrasound examination. Small sliding hiatal hernia. Status: Acute (3) UTI (urinary tract infection) Assessment & Plan: UA: Positive nitrate, 2+ LE, Urine culture: E.Coli, sensitive to Cipro; LIANET: 0.25 F/u repeat UA and UC Medications: * Cipro 400mg IV Q12H ( Started 12/31/17) * Tylenol 650mg PO Q6H PRN for fever> 100.4 * 1/2 NS @ 100mls/hr Status: Acute (4) Travelers' diarrhea Assessment & Plan: Likely food-borne due to patient's history of symptoms starting after consuming shellfish and water in [place] F/u stool culture, ova & parasite, giardia, fecal leukocytes Management: * NS @ 150cc/h * [place] diet Status: Acute (5) Kidney stone Assessment & Plan: Imaging: CT Chest, Abdomen and Pelvis without intravenous contrast (01/01/18): 5 mm stone at the right UV in junction, mild fullness in the right renal collecting system and mild dilatation of the right ureter. Asymptomatic Possible urology consult Status: Acute (6) History of menorrhagia Assessment & Plan: Imaging: CT Chest, Abdomen and Pelvis without intravenous contrast (01/01/18): Enlarged lobular fibroid uterus. Please correlate with pelvic ultrasound. F/u transvaginal/pelvis US Plans for further management outpatient Status: Acute (7) Prophylactic measure Assessment & Plan: DVT: SCDs GI: Not indicated Zofran 4mg IV Q6h PRN for nausea All plans and management discussed with Dr. Sanchez Status: Acute <Anupam Sanchez H - Last Filed: 01/01/18 16:07> Objective - Vital Signs/Intake and Output Vital Signs (last 24 hours): Temp Pulse Resp BP Pulse Ox 98.4 F 77 20 152/83 H 99 01/01/18 08:15 01/01/18 08:15 01/01/18 08:15 01/01/18 08:15 01/01/18 09:34 Intake and Output: 01/01/18 01/01/18 06:59 18:59 Intake Total 1500 2725 Balance 1500 2725 - Medications Medications: Current Medications Acetaminophen (Tylenol 325mg Tab) 650 mg PO Q6 PRN PRN Reason: Fever >100.4 F Last Admin: 01/01/18 05:44 Dose: 650 mg Ciprofloxacin (Cipro 400mg/200ml Dsw) 400 mg in 200 mls @ 133 mls/hr IVPB Q12H [facility] PRN Reason: Protocol Last Admin: 01/01/18 02:42 Dose: 133 mls/hr Metronidazole (Flagyl) 500 mg in 100 mls @ 100 mls/hr IVPB Q8H [facility] PRN Reason: Protocol Last Admin: 01/01/18 09:34 Dose: 100 mls/hr Sodium Chloride (Sodium Chloride 0.45%) 1,000 mls @ 100 mls/hr IV .Q10H [facility] Last Admin: 01/01/18 10:16 Dose: 100 mls/hr Ondansetron HCl (Zofran Inj) 4 mg IVP Q6 PRN PRN Reason: Nausea/Vomiting Saccharomyces Boulardii (Florastor) 250 mg PO BID [facility] Last Admin: 01/01/18 10:15 Dose: 250 mg - Labs Labs: 01/01/18 06:09 01/01/18 06:09 PT 14.7 SECONDS (9.7-12.2) H 12/30/17 14:09 INR 1.3 12/30/17 14:09 APTT 28 SECONDS (21-34) 12/30/17 14:09 Attending/Attestation - Attestation I have personally seen and examined this patient.: Yes I have fully participated in the care of the patient.: Yes I have reviewed all pertinent clinical information, including history, physical exam and plan: Yes Notes (Text): 01/01/18 16:07 Medical attending: Patient was seen and examined by me, agrees the above note by the medical accountant. The patient was still noted to have elevated temperatures. She had a MAXIMUM TEMPERATURE of 103 last night and then a smaller elevation earlier this morning. She is noted above has growth of Escherichia coli. It is sensitive to antibiotics and she is currently on IV Cipro. She is also on intravenous fluids as well. We talked about her with a low hemoglobin, she explains that she has a rather heavy and striations. At the meantime we'll continue to monitor this CBC Thank you very much, Anupam Sanchez
--- NOTE | 2018-01-01 16:12 | US ---
HISTORY: History of menorrhagia COMPARISON: None available. TECHNIQUE: Transabdominal and transvaginal FINDINGS: UTERUS: Measures 14.3 x 9.7 x 10.6 cm. Posterior intramural/submucosal fibroid, 3.8 x 4.0 x 3.4 cm. Anterior submucosal fibroid, 2.9 x 2.0 x 2.3 cm. ENDOMETRIUM: Measures 12 mm in diameter. Unremarkable. CERVIX: No cervical abnormality identified. RIGHT OVARY: Measures 4.2 x 2.2 x 4.5 cm. No solid mass. Normal flow. LEFT OVARY: Not visualize FREE FLUID: No significant free fluid noted. OTHER FINDINGS: None. IMPRESSION: Two submucosal uterine fibroids. 12 mm endometrium. Otherwise unremarkable examination.
[2018-01-02] MEDS: metroNIDAZOLE IV 500 mg/100 ml 500 MG/100 ML BAG IVPB SCH ×3 (00:11→17:10)
[2018-01-02] MEDS: Ciprofloxacin 400mg/200ml D5W 400 MG/200 ML BAG IVPB SCH ×2 (02:24→14:42)
[2018-01-02] MEDS: Sodium Chloride 0.45% 1,000 ML IV SCH ×3 (06:01→23:02)
[2018-01-02 07:53] LABS: BASO % 0.2 % (0.0-2.0); EOS # 0.1 K/uL (0.0-0.7); EOS % 0.8 % (0.0-4.0); HEMOGLOBIN 7.8 g/dL (11.0-16.0); LYMPH # 1.1 K/uL (1.0-4.3); LYMPH % 16.4 % (20.0-40.0); MEAN CORPUSCULAR HGB CONC 30.5 g/dL (33.0-37.0); MEAN PLATELET VOLUME 8.8 fL (7.2-11.7); MONO # 0.5 K/uL (0.0-0.8); MONO % 6.5 % (0.0-10.0); NEUT # 5.3 K/uL (1.8-7.0); NEUT % 76.1 % (50.0-75.0); NRBC % 0.1 % (0.0-2.0); RBC 4.32 Mil/uL (3.80-5.20)
[2018-01-02 07:58] LABS: ALB/GLOB RATIO 1.2 (1.0-2.1); ALBUMIN 3.5 g/dL (3.5-5.0); ALT/SGPT 23 U/L (9-52); AST/SGOT 16 U/L (14-36); BLOOD UREA NITROGEN 8 mg/dL (7-17); CALCIUM 8.9 mg/dl (8.6-10.4); GFR AFRICAN-AMERICAN > 60; GFR NON-AFRICAN AMERICAN > 60
[2018-01-02] MEDS: Saccharomyces Boulardi 250 mg Cap PO SCH ×2 (09:40→17:18)
--- NOTE | 2018-01-02 11:00 | CP.PCM.PN ---
<ErichTiffjesse E - Last Filed: 01/02/18 10:49> Subjective - Date & Time of Evaluation Date of Evaluation: 01/02/18 Time of Evaluation: 07:40 - Subjective Subjective: Medicine progress note ( Dr. Sanchez's service) Patient was seen and examined at bedside. Patient reports that she is doing well with no acute issues. Patient denies fever, chills, nausea, vomiting, chest pain, SOB, palpitations, dysuria, hematuria and flank pain. Objective - Vital Signs/Intake and Output Vital Signs (last 24 hours): Temp Pulse Resp BP Pulse Ox 98.6 F 75 20 156/82 H 96 01/02/18 08:01 01/02/18 08:01 01/02/18 08:01 01/02/18 08:01 01/02/18 08:01 Intake and Output: 01/02/18 01/02/18 06:59 18:59 Intake Total 2390 Balance 2390 - Medications Medications: Current Medications Acetaminophen (Tylenol 325mg Tab) 650 mg PO Q6 PRN PRN Reason: Fever >100.4 F Last Admin: 01/01/18 16:34 Dose: 650 mg Ciprofloxacin (Cipro 400mg/200ml Dsw) 400 mg in 200 mls @ 133 mls/hr IVPB Q12H [facility] PRN Reason: Protocol Last Admin: 01/02/18 02:24 Dose: 133 mls/hr Metronidazole (Flagyl) 500 mg in 100 mls @ 100 mls/hr IVPB Q8H [facility] PRN Reason: Protocol Last Admin: 01/02/18 09:39 Dose: 100 mls/hr Sodium Chloride (Sodium Chloride 0.45%) 1,000 mls @ 100 mls/hr IV .Q10H [facility] Last Admin: 01/02/18 06:01 Dose: 100 mls/hr Ondansetron HCl (Zofran Inj) 4 mg IVP Q6 PRN PRN Reason: Nausea/Vomiting Saccharomyces Boulardii (Florastor) 250 mg PO BID [facility] Last Admin: 01/02/18 09:40 Dose: 250 mg - Labs Labs: 01/02/18 07:32 01/02/18 07:32 PT 14.7 SECONDS (9.7-12.2) H 12/30/17 14:09 INR 1.3 12/30/17 14:09 APTT 28 SECONDS (21-34) 12/30/17 14:09 - Constitutional Appears: Well, No Acute Distress - Head Exam Head Exam: ATRAUMATIC - Eye Exam Eye Exam: EOMI - ENT Exam ENT Exam: Mucous Membranes Moist - Respiratory Exam Respiratory Exam: Clear to Ausculation Bilateral, NORMAL BREATHING PATTERN. absent: Decreased Breath Sounds, Prolonged Expiratory Phase, Rhonchi, Wheezes, Respiratory Distress - Cardiovascular Exam Cardiovascular Exam: REGULAR RHYTHM, +S1, +S2. absent: Murmur - GI/Abdominal Exam GI & Abdominal Exam: Soft, Normal Bowel Sounds. absent: Distended, Firm, Guarding, Rigid, Tenderness - Extremities Exam Extremities Exam: Normal Inspection. absent: Calf Tenderness, Pedal Edema - Neurological Exam Neurological Exam: Alert, Awake, Oriented x3 - Psychiatric Exam Psychiatric exam: Normal Affect - Skin Skin Exam: Normal Color Assessment and Plan (1) Symptomatic anemia Assessment & Plan: Possibly 2/2 menorrhagia On admission: * H/H: 6.5/22.3---> 5.6/19.6 Iron: <10 Ferritin: 20.4 B12/; 362 Folate: >20.0 TIBC: 408 Transferrin: 274.68 Recticulocyte: 2.3 Stool Occult: Negative Management: * Transfuse 2 units PRBC * H/H post-transfusion of 2 units of PRBC: 8.2/26.8 * Ferrous sulfate 325mg PO TID Status: Acute (2) Fever Assessment & Plan: Tmax: 103 Blood Culture (12/30): Negative >24 hours, repeat BC (12/31/17): Negative X 24 hours UA: Positive nitrate, 2+ LE, Urine culture: E.Coli, sensitive to Cipro; LIANET: 0.25 F/u repeat UA and UC (01/01/18) : Negative Procalcitonin: 0.13 Cipro 400mg IV Q12H (Started 12/31/17) Flagyl 500mg IV Q8H (Started 12/31/17) Tylenol 650mg PO Q6H PRN for fever> 100.4 1/2 NS @ 100mls/hr Imaging: CT Chest, Abdomen and Pelvis without intravenous contrast (01/01/18): 5 mm stone at the right UV in junction, mild fullness in the right renal collecting system and mild dilatation of the right ureter. Mild splenomegaly. Enlarged lobular fibroid uterus. Please correlate with pelvic ultrasound examination. Small sliding hiatal hernia. Status: Acute (3) UTI (urinary tract infection) Assessment & Plan: UA: Positive nitrate, 2+ LE, Urine culture: E.Coli, sensitive to Cipro; LIANET: 0.25 F/u repeat UA and UC (01/01/18) : Negative Medications: * Cipro 400mg IV Q12H ( Started 12/31/17) * Tylenol 650mg PO Q6H PRN for fever> 100.4 * 1/2 NS @ 100mls/hr Status: Acute (4) Travelers' diarrhea Assessment & Plan: Resolved Likely food-borne due to patient's history of symptoms starting after consuming shellfish and water in [place] Labs: * Ova/Parasite : Negative * Stool leukocytes: negative Awaiting stool culture, giardia, fecal leukocytes Management: * 1/2 NS @ 100cc/h * Advanced to regular diet Status: Acute (5) Kidney stone Assessment & Plan: Asymptomatic Consult, Urology, Dr. Magaly gayle ---> help appreciated * Management as per recommendation Imaging: CT Chest, Abdomen and Pelvis without intravenous contrast (01/01/18): 5 mm stone at the right UV in junction, mild fullness in the right renal collecting system and mild dilatation of the right ureter. Status: Acute (6) History of menorrhagia Assessment & Plan: Imaging: CT Chest, Abdomen and Pelvis without intravenous contrast (01/01/18): Enlarged lobular fibroid uterus. Please correlate with pelvic ultrasound. Transvaginal/pelvis US (01/01/18): Posterior intramural/submucosal fibroid, 3.8 x 4.0 x 3.4 cm. Anterior submucosal fibroid, 2.9 x 2.0 x 2.3 Two submucosal uterine fibroids. 12 mm endometrium. Otherwise unremarkable examination. Plans for further outpatient [employer] [employer] management Status: Acute (7) Prophylactic measure Assessment & Plan: DVT: SCDs GI: Not indicated Zofran 4mg IV Q6h PRN for nausea All plans and management discussed with Dr. Sanchez Status: Acute <Anupam Sanchez - Last Filed: 01/02/18 13:23> Objective - Vital Signs/Intake and Output Vital Signs (last 24 hours): Temp Pulse Resp BP Pulse Ox 98.6 F 75 20 156/82 H 96 01/02/18 08:01 01/02/18 08:01 01/02/18 08:01 01/02/18 08:01 01/02/18 08:01 Intake and Output: 01/02/18 01/02/18 06:59 18:59 Intake Total 2390 Balance 2390 - Medications Medications: Current Medications Acetaminophen (Tylenol 325mg Tab) 650 mg PO Q6 PRN PRN Reason: Fever >100.4 F Last Admin: 01/01/18 16:34 Dose: 650 mg Ferrous Sulfate (Feosol) 325 mg PO TID [facility] Ciprofloxacin (Cipro 400mg/200ml Dsw) 400 mg in 200 mls @ 133 mls/hr IVPB Q12H [facility] PRN Reason: Protocol Last Admin: 01/02/18 02:24 Dose: 133 mls/hr Metronidazole (Flagyl) 500 mg in 100 mls @ 100 mls/hr IVPB Q8H [facility] PRN Reason: Protocol Last Admin: 01/02/18 09:39 Dose: 100 mls/hr Sodium Chloride (Sodium Chloride 0.45%) 1,000 mls @ 100 mls/hr IV .Q10H [facility] Last Admin: 01/02/18 06:01 Dose: 100 mls/hr Ondansetron HCl (Zofran Inj) 4 mg IVP Q6 PRN PRN Reason: Nausea/Vomiting Saccharomyces Boulardii (Florastor) 250 mg PO BID [facility] Last Admin: 01/02/18 09:40 Dose: 250 mg - Labs Labs: 01/02/18 07:32 01/02/18 07:32 PT 14.7 SECONDS (9.7-12.2) H 12/30/17 14:09 INR 1.3 12/30/17 14:09 APTT 28 SECONDS (21-34) 12/30/17 14:09 Attending/Attestation - Attestation I have personally seen and examined this patient.: Yes I have fully participated in the care of the patient.: Yes I have reviewed all pertinent clinical information, including history, physical exam and plan: Yes Notes (Text): 01/02/18 13:22 Medical attending: Patient was seen and examined by me, agrees the above note by the medical surgical tech. The patient reported that she is feeling much better, she denied having any abdominal pain, she also denied having any diarrhea. She says that she is tolerating her diet quite well. As mentioned in yesterday's note the patient was having fevers. This most recent not night she still had fevers that were recorded however she herself did not actually feel them. Also pending a new UA, and a new urine culture as well. So at this time will continue with the Cipro and Flagyl. The only positive culture was from 12/30 when she tested positive for Escherichia coli. That was sensitive to Cipro It is possible that maybe tomorrow we'll be able to discharge the patient again will have to reevaluate her and see how she's doing and this will depend on if the cultures are negative
[2018-01-02 17:59] LABS: SOURCE STOOL
[2018-01-03] MEDS: Sodium Chloride 0.45% 1,000 ML IV SCH ×2 (02:00→11:42)
[2018-01-03] MEDS: Ciprofloxacin 400mg/200ml D5W 400 MG/200 ML BAG IVPB SCH (03:18)
[2018-01-03 07:41] LABS: BASO % 0.3 % (0.0-2.0); EOS # 0.1 K/uL (0.0-0.7); EOS % 2.4 % (0.0-4.0); HEMOGLOBIN 8.3 g/dL (11.0-16.0); LYMPH # 1.2 K/uL (1.0-4.3); MEAN CELL VOLUME 58.6 fL (81.0-99.0); MEAN CORPUSCULAR HEMOGLOBIN 17.8 pg (27.0-31.0); MEAN CORPUSCULAR HGB CONC 30.4 g/dL (33.0-37.0); MEAN PLATELET VOLUME 8.7 fL (7.2-11.7); MONO # 0.3 K/uL (0.0-0.8); MONO % 5.3 % (0.0-10.0); NEUT # 4.2 K/uL (1.8-7.0); RBC 4.68 Mil/uL (3.80-5.20); RED CELL DISTRIBUTION WIDTH 31.2 % (11.5-14.5); WHITE BLOOD COUNT 5.9 K/uL (4.8-10.8)
[2018-01-03 07:57] LABS: ALB/GLOB RATIO 1.2 (1.0-2.1); ALBUMIN 3.7 g/dL (3.5-5.0); ALT/SGPT 23 U/L (9-52); AST/SGOT 21 U/L (14-36); BLOOD UREA NITROGEN 9 mg/dL (7-17); CALCIUM 9.2 mg/dl (8.6-10.4); GFR AFRICAN-AMERICAN > 60; GFR NON-AFRICAN AMERICAN > 60
[2018-01-03] MEDS: Saccharomyces Boulardi 250 mg Cap PO SCH (09:51)
[2018-01-03 10:14] VITALS: BP 139/78; PULSE 68; TEMP 97.8; O2SAT 95
--- NOTE | 2018-01-03 11:57 | CP.PCM.DIS ---
<Savana Ireland - Last Filed: 01/03/18 15:16> Provider - Provider Date of Admission: 01/01/18 14:54 Attending physician: Anupam Sanchez DO Primary care physician: Dr. Mueller Time Spent in preparation of Discharge (in minutes): 45 Hospital Course - Lab Results Lab Results: Micro Results 12/31/17 17:30 Blood Blood Culture - Preliminary NO GROWTH AFTER 48 HOURS 12/31/17 18:00 Blood Blood Culture - Preliminary NO GROWTH AFTER 48 HOURS 12/30/17 15:00 Blood Blood Culture - Preliminary NO GROWTH AFTER 3 DAYS 12/30/17 15:30 Blood Blood Culture - Preliminary NO GROWTH AFTER 3 DAYS 01/01/18 11:11 Urine,Clean Catch Urine Culture - Final No Growth (<1,000 CFU/ML) 12/31/17 06:00 Stool Ova and Parasite Concentrate Exam - Final 12/30/17 15:23 Urine Urine Culture - Final Escherichia Coli Most Recent Lab Values WBC 5.9 K/uL (4.8-10.8) 01/03/18 07:23 RBC 4.68 Mil/uL (3.80-5.20) 01/03/18 07:23 Hgb 8.3 g/dL (11.0-16.0) L 01/03/18 07:23 Hct 27.4 % (34.0-47.0) L 01/03/18 07:23 MCV 58.6 fL (81.0-99.0) L 01/03/18 07:23 MCH 17.8 pg (27.0-31.0) L 01/03/18 07:23 MCHC 30.4 g/dL (33.0-37.0) L 01/03/18 07:23 RDW 31.2 % (11.5-14.5) H 01/03/18 07:23 Plt Count 237 K/uL (130-400) 01/03/18 07:23 MPV 8.7 fL (7.2-11.7) 01/03/18 07:23 Neut % (Auto) 72.0 % (50.0-75.0) 01/03/18 07:23 Lymph % (Auto) 20.0 % (20.0-40.0) 01/03/18 07:23 [place] % (Auto) 5.3 % (0.0-10.0) 01/03/18 07:23 Eos % (Auto) 2.4 % (0.0-4.0) 01/03/18 07:23 Baso % (Auto) 0.3 % (0.0-2.0) 01/03/18 07:23 Neut # (Auto) 4.2 K/uL (1.8-7.0) 01/03/18 07:23 Lymph # (Auto) 1.2 K/uL (1.0-4.3) 01/03/18 07:23 [place] # (Auto) 0.3 K/uL (0.0-0.8) 01/03/18 07:23 Eos # (Auto) 0.1 K/uL (0.0-0.7) 01/03/18 07:23 Baso # (Auto) 0.0 K/uL (0.0-0.2) 01/03/18 07:23 Neutrophils % (Manual) 96 % (50-75) H 12/31/17 17:11 Lymphocytes % (Manual) 3 % (20-40) L 12/31/17 17:11 Monocytes % (Manual) 1 % (0-10) 12/31/17 17:11 Platelet Estimate Normal (NORMAL) 12/31/17 17:11 Polychromasia Slight 12/31/17 17:11 Hypochromasia (manual) Moderate 12/31/17 17:11 Anisocytosis (manual) Moderate 12/31/17 17:11 Microcytosis (manual) Moderate 12/31/17 17:11 Ovalocytes Slight 12/31/17 17:11 Retic Count 2.3 % (0.5-1.5) H 12/30/17 15:57 PT 14.7 SECONDS (9.7-12.2) H 12/30/17 14:09 INR 1.3 12/30/17 14:09 APTT 28 SECONDS (21-34) 12/30/17 14:09 Sodium 139 mmol/L (132-148) 01/03/18 07:23 Potassium 3.5 mmol/L (3.6-5.2) L 01/03/18 07:23 Chloride 103 mmol/L (98-107) 01/03/18 07:23 Carbon Dioxide 22 mmol/L (22-30) 01/03/18 07:23 Anion Gap 17 (10-20) 01/03/18 07:23 BUN 9 mg/dL (7-17) 01/03/18 07:23 Creatinine 0.6 mg/dL (0.7-1.2) L 01/03/18 07:23 Est GFR ( Amer) > 60 01/03/18 07:23 Est GFR (Non-Af Amer) > 60 01/03/18 07:23 Random Glucose 88 mg/dL (65-105) 01/03/18 07:23 Calcium 9.2 mg/dl (8.6-10.4) 01/03/18 07:23 Phosphorus 4.2 mg/dL (2.5-4.5) 01/03/18 07:23 Magnesium 1.8 mg/dL (1.6-2.3) 01/03/18 07:23 Iron < 10 ug/dL (37-170) L 12/30/17 15:57 TIBC 408 ug/dL (250-450) 12/30/17 15:57 % Saturation (20-55) 12/30/17 15:57 Transferrin 274.68 mg/dL (206-381) 12/30/17 15:57 Ferritin 20.4 ng/mL 12/30/17 15:57 Total Bilirubin 0.8 mg/dL (0.2-1.3) 01/03/18 07:23 AST 21 U/L (14-36) 01/03/18 07:23 ALT 23 U/L (9-52) 01/03/18 07:23 Alkaline Phosphatase 72 U/L (38-126) 01/03/18 07:23 Total Protein 6.7 g/dL (6.3-8.3) 01/03/18 07:23 Albumin 3.7 g/dL (3.5-5.0) 01/03/18 07:23 Globulin 3.1 gm/dL (2.2-3.9) 01/03/18 07:23 Albumin/Globulin Ratio 1.2 (1.0-2.1) 01/03/18 07:23 Lipase 43 U/L (23-300) 12/30/17 13:29 Vitamin B12 362 pg/mL (239-931) 12/30/17 15:57 Folate > 20.0 ng/mL 12/30/17 15:57 Procalcitonin 0.13 NG/ML (0.19-0.49) L 12/31/17 18:03 Urine Color Yellow (YELLOW) 01/01/18 11:11 Urine Clarity Hazy (Clear) 01/01/18 11:11 Urine pH 6.0 (5.0-8.0) 01/01/18 11:11 Ur Specific [place] 1.015 (1.003-1.030) 01/01/18 11:11 Urine Protein Negative mg/dL (NEGATIVE) 01/01/18 11:11 Urine Glucose (UA) Normal mg/dL (Normal) 01/01/18 11:11 Urine Ketones Negative mg/dL (NEGATIVE) 01/01/18 11:11 Urine Blood Negative (NEGATIVE) 01/01/18 11:11 Urine Nitrate Negative (NEGATIVE) 01/01/18 11:11 Urine Bilirubin Negative (NEGATIVE) 01/01/18 11:11 Urine Urobilinogen Normal mg/dL (0.2-1.0) 01/01/18 11:11 Ur Leukocyte Esterase Trace Eileen/uL (Negative) 01/01/18 11:11 Urine WBC (Auto) 2 /hpf (0-5) 01/01/18 11:11 Urine RBC (Auto) 4 /hpf (0-3) H 01/01/18 11:11 Ur Squamous Epith Cells 3 /hpf (0-5) 01/01/18 11:11 Urine Bacteria Occ (<OCC) H 12/30/17 14:37 Urine HCG, Qual Negative (NEGATIVE) 12/31/17 09:23 Stool Occult Blood Negative (NEGATIVE) 12/30/17 14:37 Stool Leukocytes, Qual Negative (NEGATIVE) 12/31/17 06:00 Stl Cryptosporidium Ag Not detected (Not detected) 12/31/17 22:44 Cryptosp/Giardia Source Stool 12/31/17 22:44 Giardia Antigen Not detected (Not Detected) 12/31/17 22:44 Blood Type O POSITIVE 12/30/17 14:09 Antibody Screen Negative 12/30/17 14:09 - Hospital Course Hospital Course: HPI: Patient is a 47 year old female with PMHx iron-deficiency anemia and menorrhagia who presents to the ER with complaint of nausea, vomiting, diarrhea fever, and chills since 12/27/17. Patient states she was in [place] from 12/24/17 to 12/29/17 with her friends. She states on 12/27/17, she and her friends went out to a restaurant where they shared a pasta dish with clams, mussels, and shrimp. She states they asked for bottled water but were given a pitcher instead. She states she and her friends had symptoms start Saturday evening following this shared meal. Patient reports her friends are all currently hospitalized in other hospitals in the area with the same complaints. Patient denies blood in vomit or diarrhea. She reports decreased PO intake, only crackers, bread, minimal water. She reports Tmax 103 this morning at 4AM, at which time she took ibuprofen, with no relief of rigors. She reports light- headed feeling that is chronic, but worsened recently. She reports heavy menses with clots and was on oral iron supplementation in the past, but has not taken iron in a few years. PMD: Dg Mueller Allergies: none PMHx: anemia (likely iron-deficiency- on iron in past- denies sickle cell or thalassemia), uterine fibroids LMP: 12/15-12/20 requiring pad change every hour, + clots PSHx: uterine fibroid removal in [address] 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 Labs were ordered and medications were given. Patient was started on IV fluids, cipro , and flagyl. Blood cultures were negative. Urinalysis was positive for infection. Urine cultures were ordered and positive for e.coli (sensitive to cipro). Repeat urinalysis and culture were ordered and were negative. Patient was also treated for symptomatic anemia. At admission, hemoglobin was 6.5. Patient received two units of PRBCs. Anemia work up showed the patient was iron deficient and she was started on feosol 325mg TID. Patient was seen and examined today, has been asymptomatic, afebrile for 24+ hours, and cultures were negative. Patient is stable for discharge to home. Patient must continue 5 days of oral cipro and flagyl. Patient encouraged to follow up with PMD at [facility]. This is a brief summary of the hospital course. Please see EMR for more details. Discharge Exam - Head Exam Head Exam: ATRAUMATIC, NORMAL INSPECTION - Eye Exam Eye Exam: EOMI, Normal appearance - ENT Exam ENT Exam: Mucous Membranes Moist - Respiratory Exam Respiratory Exam: Clear to PA & Lateral, NORMAL BREATHING PATTERN, UNREMARKABLE. absent: Rales, Rhonchi, Wheezes, Respiratory Distress - Cardiovascular Exam Cardiovascular Exam: REGULAR RHYTHM, +S1, +S2. absent: Bradycardia, Tachycardia - GI/Abdominal Exam GI & Abdominal Exam: Normal Bowel Sounds, Soft, Unremarkable. absent: Distended , Firm, Tenderness - Extremities Exam Extremities exam: normal inspection, pedal pulses present - Neurological Exam Neurological exam: Alert, Oriented x3 - Psychiatric Exam Psychiatric exam: Normal Affect, Normal Mood - Skin Skin Exam: Dry, Intact, Normal Color, Warm Discharge Plan - Discharge Medications Prescriptions: Ciprofloxacin HCl [Cipro] 500 mg PO BID 5 Days #10 tab Docusate Sodium [Colace] 100 mg PO BID #30 capsule Ferrous Sulfate [Feosol] 325 mg PO TID #90 tab Saccharomyces Boulardi [Florastor] 250 mg PO BID #60 cap - Follow Up Plan Condition: STABLE Disposition: HOME/ ROUTINE Instructions: Fever, Adult (DC), Normocytic Normochromic Anemia (DC), Urinary Tract Infection in Women (DC) Additional Instructions: Patient is stable for discharge to home. Patient must continue the following medications: 1. Cipro 500mg PO BID for 5 days- take 1 tablet by mouth twice a day for 5 days 2. Florastor 250mg PO BID for 1 month- take 1 tablet by mouth twice a day for 1 month 3. Feosol 325mg PO TID- take 1 tablet by mouth three times a day 4. Colace 100mg PO BID- take 1 tablet by mouth twice a day Patient should follow up with PMD within 1-2 weeks of discharge. Recommended NHC at [facility] or [facility]. If symptoms worsen or reoccur, patient should return to the nearest ED. <Anupam Sanchez - Last Filed: 01/03/18 17:20> Provider - Provider Date of Admission: 01/01/18 14:54 Attending physician: Anupam Sanchez DO Hospital Course - Lab Results Lab Results: Micro Results 12/30/17 15:00 Blood Blood Culture - Preliminary NO GROWTH AFTER 4 DAYS 12/30/17 15:30 Blood Blood Culture - Preliminary NO GROWTH AFTER 4 DAYS 12/31/17 22:43 Stool Stool Culture - Final NO SALMONELLA, SHIGELLA OR CAMPYLOBACTER ISOLATED. 12/31/17 17:30 Blood Blood Culture - Preliminary NO GROWTH AFTER 48 HOURS 12/31/17 18:00 Blood Blood Culture - Preliminary NO GROWTH AFTER 48 HOURS 01/01/18 11:11 Urine,Clean Catch Urine Culture - Final No Growth (<1,000 CFU/ML) 12/31/17 06:00 Stool Ova and Parasite Concentrate Exam - Final 12/30/17 15:23 Urine Urine Culture - Final Escherichia Coli Most Recent Lab Values WBC 5.9 K/uL (4.8-10.8) 01/03/18 07:23 RBC 4.68 Mil/uL (3.80-5.20) 01/03/18 07:23 Hgb 8.3 g/dL (11.0-16.0) L 01/03/18 07:23 Hct 27.4 % (34.0-47.0) L 01/03/18 07:23 MCV 58.6 fL (81.0-99.0) L 01/03/18 07:23 MCH 17.8 pg (27.0-31.0) L 01/03/18 07:23 MCHC 30.4 g/dL (33.0-37.0) L 01/03/18 07:23 RDW 31.2 % (11.5-14.5) H 01/03/18 07:23 Plt Count 237 K/uL (130-400) 01/03/18 07:23 MPV 8.7 fL (7.2-11.7) 01/03/18 07:23 Neut % (Auto) 72.0 % (50.0-75.0) 01/03/18 07:23 Lymph % (Auto) 20.0 % (20.0-40.0) 01/03/18 07:23 [place] % (Auto) 5.3 % (0.0-10.0) 01/03/18 07:23 Eos % (Auto) 2.4 % (0.0-4.0) 01/03/18 07:23 Baso % (Auto) 0.3 % (0.0-2.0) 01/03/18 07:23 Neut # (Auto) 4.2 K/uL (1.8-7.0) 01/03/18 07:23 Lymph # (Auto) 1.2 K/uL (1.0-4.3) 01/03/18 07:23 [place] # (Auto) 0.3 K/uL (0.0-0.8) 01/03/18 07:23 Eos # (Auto) 0.1 K/uL (0.0-0.7) 01/03/18 07: Baso # (Auto) 0.0 K/uL (0.0-0.2) 01/03/18 07:23 Neutrophils % (Manual) 96 % (50-75) H 12/31/17 17:11 Lymphocytes % (Manual) 3 % (20-40) L 12/31/17 17:11 Monocytes % (Manual) 1 % (0-10) 12/31/17 17:11 Platelet Estimate Normal (NORMAL) 12/31/17 17:11 Polychromasia Slight 12/31/17 17:11 Hypochromasia (manual) Moderate 12/31/17 17:11 Anisocytosis (manual) Moderate 12/31/17 17:11 Microcytosis (manual) Moderate 12/31/17 17:11 Ovalocytes Slight 12/31/17 17:11 Retic Count 2.3 % (0.5-1.5) H 12/30/17 15:57 PT 14.7 SECONDS (9.7-12.2) H 12/30/17 14:09 INR 1.3 12/30/17 14:09 APTT 28 SECONDS (21-34) 12/30/17 14:09 Sodium 139 mmol/L (132-148) 01/03/18 07:23 Potassium 3.5 mmol/L (3.6-5.2) L 01/03/18 07:23 Chloride 103 mmol/L (98-107) 01/03/18 07:23 Carbon Dioxide 22 mmol/L (22-30) 01/03/18 07:23 Anion Gap 17 (10-20) 01/03/18 07:23 BUN 9 mg/dL (7-17) 01/03/18 07:23 Creatinine 0.6 mg/dL (0.7-1.2) L 01/03/18 07:23 Est GFR ( Amer) > 60 01/03/18 07:23 Est GFR (Non-Af Amer) > 60 01/03/18 07:23 Random Glucose 88 mg/dL (65-105) 01/03/18 07:23 Calcium 9.2 mg/dl (8.6-10.4) 01/03/18 07:23 Phosphorus 4.2 mg/dL (2.5-4.5) 01/03/18 07:23 Magnesium 1.8 mg/dL (1.6-2.3) 01/03/18 07:23 Iron < 10 ug/dL (37-170) L 12/30/17 15:57 TIBC 408 ug/dL (250-450) 12/30/17 15:57 % Saturation (20-55) 12/30/17 15:57 Transferrin 274.68 mg/dL (206-381) 12/30/17 15:57 Ferritin 20.4 ng/mL 12/30/17 15:57 Total Bilirubin 0.8 mg/dL (0.2-1.3) 01/03/18 07:23 AST 21 U/L (14-36) 01/03/18 07:23 ALT 23 U/L (9-52) 01/03/18 07:23 Alkaline Phosphatase 72 U/L (38-126) 01/03/18 07:23 Total Protein 6.7 g/dL (6.3-8.3) 01/03/18 07:23 Albumin 3.7 g/dL (3.5-5.0) 01/03/18 07:23 Globulin 3.1 gm/dL (2.2-3.9) 01/03/18 07:23 Albumin/Globulin Ratio 1.2 (1.0-2.1) 01/03/18 07:23 Lipase 43 U/L (23-300) 12/30/17 13:29 Vitamin B12 362 pg/mL (239-931) 12/30/17 15:57 Folate > 20.0 ng/mL 12/30/17 15:57 Procalcitonin 0.13 NG/ML (0.19-0.49) L 12/31/17 18:03 Urine Color Yellow (YELLOW) 01/01/18 11:11 Urine Clarity Hazy (Clear) 01/01/18 11:11 Urine pH 6.0 (5.0-8.0) 01/01/18 11:11 Ur Specific [place] 1.015 (1.003-1.030) 01/01/18 11:11 Urine Protein Negative mg/dL (NEGATIVE) 01/01/18 11:11 Urine Glucose (UA) Normal mg/dL (Normal) 01/01/18 11:11 Urine Ketones Negative mg/dL (NEGATIVE) 01/01/18 11:11 Urine Blood Negative (NEGATIVE) 01/01/18 11:11 Urine Nitrate Negative (NEGATIVE) 01/01/18 11:11 Urine Bilirubin Negative (NEGATIVE) 01/01/18 11:11 Urine Urobilinogen Normal mg/dL (0.2-1.0) 01/01/18 11:11 Ur Leukocyte Esterase Trace Eileen/uL (Negative) 01/01/18 11:11 Urine WBC (Auto) 2 /hpf (0-5) 01/01/18 11:11 Urine RBC (Auto) 4 /hpf (0-3) H 01/01/18 11:11 Ur Squamous Epith Cells 3 /hpf (0-5) 01/01/18 11:11 Urine Bacteria Occ (<OCC) H 12/30/17 14:37 Urine HCG, Qual Negative (NEGATIVE) 12/31/17 09:23 Stool Occult Blood Negative (NEGATIVE) 12/30/17 14:37 Stool Leukocytes, Qual Negative (NEGATIVE) 12/31/17 06:00 Stl Cryptosporidium Ag Not detected (Not detected) 12/31/17 22:44 Cryptosp/Giardia Source Stool 12/31/17 22:44 Giardia Antigen Not detected (Not Detected) 12/31/17 22:44 Blood Type O POSITIVE 12/30/17 14:09 Antibody Screen Negative 12/30/17 14:09 Attending/Attestation - Attestation I have personally seen and examined this patient.: Yes I have fully participated in the care of the patient.: Yes I have reviewed all pertinent clinical information, including history, physical exam and plan: Yes Notes (Text): 06/29/18 17:20 Medical attending: Patient was seen and examined by me, agrees the above note by the outside medical sales representative. As mentioned before the patient grew out Escherichia coli on the urine culture. The Escherichia coli is sensitive to many antibiotics including Cipro with LIANET of 0.25. So while here she's been treated with the IV Cipro. She's been noted to have periodic fevers from time to time, however when we repeated the UA as well as a urine culture was recently they are now negative and she's been fever free for the past 24 hours. Furthermore she is no longer having any of the diarrhea that initially brought her in. Summary at discharge her to home_prescription for Cipro by mouth for the next 5 more days. I explained to her that if she wants to she is able to follow-up at [facility] clinic Thank you much, Anupam Sanchez
== END 2018-01-03 13:20 | disposition home or self-care (01) | DRG 813 ==
LOC: C.ER 12:46 → C.9E 15:01 → C.3T 16:39 → OBSVTOIN 01-01 14:54
PROVIDERS: ADMIT Hospitalist; ATTEND Hospitalist
PROC: 30233N1 Transfusion of Nonautologous Red Blood Cells into Peripheral Vein, Percutaneous Approach (ICD-10-PCS; principal; 2018-01-01)
DX: K52.29 Other allergic and dietetic gastroenteritis and colitis (principal); D50.0 Iron deficiency anemia secondary to blood loss (chronic); N39.0 Urinary tract infection, site not specified; B96.20 Unspecified Escherichia coli [E. coli] as the cause of diseases classified elsewhere; N92.0 Excessive and frequent menstruation with regular cycle; Z91.013 Allergy to seafood